=== PATIENT | female | born 1960 | race Caucasian/White ===

== ENCOUNTER 2021-01-19 12:42 | Outpatient (CLI) | payer BC ==
[2021-01-19] MEDS ORDERED: LIDOCAINE 1%, 10ML ONE (12:50)
== END 2021-01-19 23:59 | disposition home or self-care (01) ==
LOC: RAD 12:42
PROVIDERS: ATTEND Family Medicine
DX: E04.1 Nontoxic single thyroid nodule (principal)
CPT/HCPCS: 10005; 88173; J3490